=== PATIENT | male | born 1965 | race Caucasian/White ===

== ENCOUNTER 2016-11-25 09:16 | Emergency (ER) | payer OTHER, BC ==
--- NOTE | 2016-11-25 09:33 | EDM.PDOC ---
ED HPI GENERAL MEDICAL PROBLEM - General Chief Complaint: Laceration Stated Complaint: CUT HAND AT WORK Time Seen by Provider: 11/25/16 09:19 Source of Information: Reports: Patient History Limitations: Reports: No Limitations - History of Present Illness INITIAL COMMENTS - FREE TEXT/NARRATIVE: While at work, patient cut his left hand with a box puller. He is able to move all fingers, form a fist and has normal feeling to his fingers. He has no other complaints. 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: Other (see below) (pressure being held) - Related Data Allergies Allergy/AdvReac Type Severity Reaction Status Date / Time No Known Allergies Allergy Verified 11/25/16 09:34 Home Meds: Home Meds Levothyroxine [Synthroid] 100 mcg PO ACBREAKFAST 11/25/16 [History] atorvaSTATin Calcium [Atorvastatin Calcium] 20 mg PO BEDTIME 11/25/16 [History] ED ROS GENERAL - Review of Systems Review Of Systems: See Below Constitutional: Reports: No Symptoms HEENT: Reports: No Symptoms Respiratory: Reports: No Symptoms Cardiovascular: Reports: No Symptoms Endocrine: Reports: No Symptoms GI/Abdominal: Reports: No Symptoms : Reports: No Symptoms Musculoskeletal: Reports: Hand Pain Skin: Reports: Wound Neurological: Reports: No Symptoms Psychiatric: Reports: No Symptoms Hematologic/Lymphatic: Reports: No Symptoms Immunologic: Reports: No Symptoms ED EXAM, GENERAL - Physical Exam Exam: See Below Exam Limited By: No Limitations General Appearance: Alert, WD/WN, Mild Distress Neurological: Alert, Oriented, CN II-XII Intact Psychiatric: Normal Affect, Normal Mood Skin Exam: Wound/Incision (wound from utility knife, 4.5 cm in length linear in nature, muscle and tendon exposed) ED GENERAL MEDICAL PROCEDURES - Laceration/Wound Repair Left Hand Lac/wound length in cm: 4.5 (wound to the dorsal surface of the hand between index finger and thumb near the "snuff box") Appearance: Linear, Clean Distal NVT: Neuro & Vascular Intact, No Tendon Injury Anesthetic Type: Local Local Anesthesia - Lidocaine (Xylocaine): 1% Plain Local Anesthetic Volume: 5cc Skin Prep: Chlorhexidine (Hibiciens) Saline irrigation (cc's): 20 Exploration/Debridement/Repair: Wound Explored, In a Bloodless Field, Explored to Base, No Foreign Material Found Closed with: Sutures Suture Size: 4-0 # of Sutures: 7 Suture Type: Nylon, Interrupted Sterile Dressing Applied: Nurse Tetanus Status Addressed: Yes Complications: No Course - Vital Signs Last Recorded V/S: Last Vital Signs Temp 36.4 C 11/25/16 09:19 Pulse 73 11/25/16 09:19 Resp 18 11/25/16 09:19 BP 156/83 H 11/25/16 09:19 Pulse Ox 96 11/25/16 09:19 - Orders/Labs/Meds Orders: Active Orders 24 hr Category Date Time Status Vaccines to be Administered [RC] PER UNIT ROUTINE Care 11/25/16 10:13 Active Hand 2V Lt [CR] Stat Exams 11/25/16 09:22 Taken Meds: Medications Discontinued Medications Generic Name Dose Route Start Last Admin Trade Name Dang PRN Reason Stop Dose Admin Diphtheria/Tetanus/Acell Pertussis 0.5 ml 11/25/16 10:13 11/25/16 10:20 Adacel IM 11/25/16 10:14 0.5 ml .ONCE ONE Administration Lidocaine HCl 5 ml 11/25/16 09:22 11/25/16 09:50 Xylocaine-Mpf 1% INJECT 11/25/16 09:23 5 ml ONETIME ONE Administration Departure - Departure Time of Disposition: 10:11 Disposition: Home, Self-Care 01 Condition: Good Clinical Impression: Laceration of left index finger w/o foreign body w/o damage to nail Qualifiers: Encounter type: initial encounter Qualified Code(s): S61.211A - Laceration without foreign body of left index finger without damage to nail, initial encounter - Discharge Information Instructions: Wound Infection, [id number], Laceration Care, Adult, Easy-to- Read, Stitches, [place], or Adhesive Wound Closure, [id number] Referrals: Bruce Reeves MD [Primary Care Provider] - Forms: ED Department Discharge Additional Instructions: Remove sutures in 14 days If you have any trouble with feeling, increased pain, swelling or you feel your circulation is affected in your index finger make sure to either call the ER or stop in. Follow up with your primary doctor as symptoms warrant. We did talk about signs of infection, I also included some education for you that covers these signs as well. You may have redness, pain and swelling at the tetanus injection site. Please call us with any questions or concerns. Thank you for choosing [facility]. - Problem List & Annotations (1) Laceration of left index finger w/o foreign body w/o damage to nail SNOMED Code(s): 823481794 Code(s): S61.211A - LACERATION W/O FB OF L IDX FNGR W/O DAMAGE TO NAIL, INIT Status: Acute Priority: Low Qualifiers: Encounter type: initial encounter Qualified Code(s): S61.211A - Laceration without foreign body of left index finger without damage to nail, initial encounter - Problem List Review Problem List Initiated/Reviewed/Updated: Yes - My Orders Last 24 Hours: My Active Orders 11/25/16 09:22 Hand 2V Lt [CR] Stat 11/25/16 10:13 Vaccines to be Administered [RC] PER UNIT ROUTINE - Assessment/Plan Last 24 Hours: My Active Orders 11/25/16 09:22 Hand 2V Lt [CR] Stat 11/25/16 10:13 Vaccines to be Administered [RC] PER UNIT ROUTINE Assessment:: left index finger laceration Plan: Remove sutures in 14 days If you have any trouble with feeling, increased pain, swelling or you feel your circulation is affected in your index finger make sure to either call the ER or stop in. Follow up with your primary doctor as symptoms warrant. We did talk about signs of infection, I also included some education for you that covers these signs as well. You may have redness, pain and swelling at the tetanus injection site. Please call us with any questions or concerns. Thank you for choosing [facility].
[2016-11-25] MEDS ORDERED: Diphtheria,Pertussis(Acell),Tetanus Vaccine 0.5 ML Syringe IM ONE (10:13)
== END 2016-11-25 10:25 | disposition home or self-care (01) ==
LOC: VM.ED 09:16
DX: S61.211A Laceration without foreign body of left index finger without damage to nail, initial encounter (principal); Z23 Encounter for immunization; W26.8XXA Contact with other sharp object(s), not elsewhere classified, initial encounter
CPT/HCPCS: 12002; 73120-LT; 90471; 90715; 99283

== ENCOUNTER 2023-02-09 10:02 | Day surgery (SDC) | payer BC, OTHER ==
[~2023-02-09 10:02] MED LIST: Lactated Ringers 1,000 ML IV SCH
[2023-02-09] MEDS ORDERED: Propofol 200 MG/20 ML SDV ONE ×2 (12:09→12:27)
[2023-02-09] MEDS ORDERED: fentaNYL 100 MCG/2 ML SDV ONE (12:10)
[2023-03-16] MEDS ORDERED: Lactated Ringers 1,000 ML IV SCH (07:00)
== END 2023-02-09 13:47 | disposition home or self-care (01) ==
LOC: VM.SDS 10:02 → MERGE 03-16 07:30
PROVIDERS: ATTEND Family Medicine
DX: Z12.11 Encounter for screening for malignant neoplasm of colon (principal); D12.0 Benign neoplasm of cecum; D12.6 Benign neoplasm of colon, unspecified; K63.5 Polyp of colon; E78.00 Pure hypercholesterolemia, unspecified; E03.9 Hypothyroidism, unspecified; E66.9 Obesity, unspecified; Z68.36 Body mass index [BMI] 36.0-36.9, adult; F17.220 Nicotine dependence, chewing tobacco, uncomplicated; Z79.82 Long term (current) use of aspirin; Z79.890 Hormone replacement therapy; Z79.899 Other long term (current) drug therapy
CPT/HCPCS: 00812; J2704; J3010; J7120